=== PATIENT | female | born 1970 | race African-American/Black ===

== ENCOUNTER 2017-07-24 18:41 | Emergency (ER) | payer OTHER ==
[~2017-07-24] VITALS: Ht 154.9 cm; Wt 99.7 kg
[2017-07-24] MEDS ORDERED: MOTRIN600 MG PO (19:32)
[2017-07-24 19:40] VITALS: BP 150/111
== END 2017-07-24 19:42 | disposition home or self-care (01) ==
LOC: EME 18:41
DX: S86.811A Strain of other muscle(s) and tendon(s) at lower leg level, right leg, initial encounter (principal); X50.0XXA Overexertion from strenuous movement or load, initial encounter; Y93.F9 Activity, other caregiving; Y92.199 Unspecified place in other specified residential institution as the place of occurrence of the external cause; Y99.0 Civilian activity done for income or pay; F17.200 Nicotine dependence, unspecified, uncomplicated
CPT/HCPCS: 99281; 99284